=== PATIENT | female | born 1955 | race African-American/Black ===

== ENCOUNTER 2018-04-17 10:43 | Inpatient (IN) | payer BC ==
[2018-04-17 10:58] VITALS: BMI 23.6
--- NOTE | 2018-04-17 11:58 | HP ---
COWS - Scale Resting Pulse: 1= [place] 81-100 Sweatin= Chills/Flushing Restless Observation: 1= Difficult to Sit Still Pupil Size: 1= Pupils >than Normal Bone or Joint Aches: 2= Severe Diffuse Aches Runny Nose/ Eye Tearin= Runny Nose/Eyes GI Upset > 30mins: 3= Vomiting/Diarrhea Tremor Observation: 2= Slight Tremor Visible Yawning Observation: 2= >3x During Session Anxiety or Irritability: 2=Irritable/Anxious Goose Flesh Skin: 0=Smooth Skin COWS Score: 17 CIWA Score Nausea/Vomitin Muscle Tremors: 2 Anxiety: 2 Agitation: 2 Paroxysmal Sweats: 1-Minimal Palms Moist Orientation: 0-Oriented Tacttile Disturbances: 1-Very Mild Itch/Numbness Auditory Disturbances: 1-Very Mild Visual Disturbances: 0-None Headache: 2-Mild CIWA-Ar Total Score: 14 - Admission Criteria OASAS Guidelines: Admission for Medically Managed Detox: Requires at least one of the followin. CIWA greater than 12 2. Seizures within the past 24 hours 3. Delirium tremens within the past 24 hours 4. Hallucinations within the past 24 hours 5. Acute intervention needed for co occurring medical disorder 6. Acute intervention needed for co occurring psychiatric disorder 7. Severe withdrawal that cannot be handled at a lower level of care (continued vomiting, continued diarrhea, abnormal vital signs) requiring intravenous medication and/or fluids 8. Patient presents the following: CIWA greater than 12 Admission Criteria Met: Admission criteria met Admission ROS [facility] - [facility] Chief Complaint: i need help to stop using heroin and alcohol Allergies/Adverse Reactions: Allergies Allergy/AdvReac Type Severity Reaction Status Date / Time No Known Allergies Allergy Verified 04/17/18 11:07 History of Present Illness: this 62 years old female with heroin and alcohol dependence,seeking detox, withdrawal symptom,never been in detox before, hypertension on med hepatitis c followed up with weight loss nicotine dependence longest period of sobriety5 years plan for outpatient program Exam Limitations: No Limitations - Ebola screening Have you traveled outside of the country in the last 21 days: No Have you had contact with anyone from an Ebola affected area: No Have you been sick,other than usual withdrawal symptoms: No Do you have a fever: No - Review of Systems Constitutional: Chills, Loss of Appetite, Malaise, Night Sweats, Changes in sleep, Weakness, Unintentional Wgt. Loss EENT: reports: Hearing Loss, Nose Congestion Respiratory: reports: No Symptoms reported Cardiac: reports: No Symptoms Reported GI: reports: Diarrhea, Nausea, Vomiting, Abdominal cramping : reports: No Symptoms Reported Musculoskeletal: reports: Back Pain, Joint Pain, Muscle Pain, Joint Stiffness Integumentary: reports: Dryness Neuro: reports: Headache, Tremors Endocrine: reports: No Symptoms Reported Hematology: reports: No Symptoms Reported, Other (anemia) Psychiatric: reports: No Sypmtoms Reported, Judgement Intact, Mood/Affect Appropiate Other Systems: Reviewed and Negative Patient History - Patient Medical History Hx Anemia: Yes (history of anemia,no med,use to be on iron) Hx Asthma: No Hx Chronic Obstructive Pulmonary Disease (COPD): Yes (on no med) Hx Cancer: No Hx Cardiac Disorders: No Hx Congestive Heart Failure: No Hx Hypertension: Yes (ON MEDICATION) Hx Hypercholesterolemia: Yes (no med) Hx Pacemaker: No HX Cerebrovascular Accident: No Hx Seizures: No Hx Dementia: No Hx Diabetes: No Hx Gastrointestinal Disorders: No Hx Liver Disease: No Hx Genitourinary Disorders: No Hx Sexually Transmitted Disorders: No Hx Renal Disease (ESRD): No Hx Thyroid Disease: No Hx Human Immunodeficiency Virus (HIV): No (last 2016) Hx Hepatitis C: Yes (no treatment) Hx Depression: No Hx Suicide Attempt: No Hx Bipolar Disorder: No Hx Schizophrenia: No Other Medical History: no suicidal,no homicidal - Patient Surgical History Past Surgical History: No Hx Neurologic Surgery: No Hx Cataract Extraction: No Hx Cardiac Surgery: No Hx Lung Surgery: No Hx Breast Surgery: No Hx Breast Biopsy: No Hx Abdominal Surgery: No Hx Appendectomy: No Hx Cholecystectomy: No Hx Genitourinary Surgery: No Hx Section: Yes (x1 19 years ago) Hx Orthopedic Surgery: Yes (bUNION REMOVAL left) Anesthesia Reaction: No - PPD History Previous Implant?: Yes Documented Results: Negative w/o proof Implanted On Prior R Admission?: No PPD to be Administered?: Yes - Reproductive History Patient is a Female of Child Bearing Age (11 -55 yrs old): No Patient : No - Smoking Cessation Smoking history: Current every day smoker Have you smoked in the past 12 months: Yes Aproximately how many cigarettes per day: 10 Hx Chewing Tobacco Use: No Initiated information on smoking cessation: Yes 'Breaking Loose' booklet given: 04/17/18 - Substance & Tx. History Hx Alcohol Use: Yes Hx Substance Use: Yes Substance Use Type: Alcohol, Heroin Hx Substance Use Treatment: No - Substances Abused Heroin Route: Inhalation Frequency: Daily Amount used: 1 bAG Age of first use: 62 Date of Last Use: 04/17/18 Alcohol Route: Oral Frequency: Daily Amount used: vODKA- pINT Age of first use: 62 Date of Last Use: 04/16/18 Family Disease History - Family Disease History Family History: Denies Admission Physical Exam [facility] - Vital Signs Vital Signs: Vital Signs - 24 hr 04/17/18 10:56 Temperature 97.3 F L Pulse Rate 92 H Respiratory 18 Rate Blood Pressure 151/97 - Physical General Appearance: Yes: Moderate Distress, Tremorous, Irritable, Sweating, Anxious HEENTM: Yes: Normocephalic, SHAUN, Pharynx Normal, Other (poor dental hygiene no natural teeth upper) Respiratory: Yes: Lungs Clear, Normal Breath Sounds, No Respiratory Distress Neck: Yes: Within Normal Limits, Supple, Trachea in good position Breast: Yes: Breast Exam Deferred Cardiology: Yes: Within Normal Limits, Regular Rhythm, Regular Rate, S1, S2 Abdominal: Yes: Within Normal Limits, Normal Bowel Sounds, Non Tender, Flat, Soft, Surgical Scar Genitourinary: Yes: Within Normal Limits Back: Yes: Muscle Spasm Musculoskeletal: Yes: Back pain, Joint Stiffness, Muscle Pain Extremities: Yes: Within Normal Limits, Normal Range of Motion, Tremors Neurological: Yes: felt hanger II-XII NML intact, Alert, Motor Strength 5/5 Integumentary: Yes: Dry Lymphatic: Yes: Within Normal Limits - Diagnostic (1) Opioid dependence with withdrawal Current Visit: Yes Status: Acute (2) Alcohol dependence with uncomplicated withdrawal Current Visit: Yes Status: Acute (3) Weight loss Current Visit: Yes Status: Acute (4) Hepatitis C Current Visit: Yes Status: Acute (5) Poor oral hygiene Current Visit: Yes Status: Acute (6) No natural teeth Current Visit: Yes Status: Acute Cleared for Admission [facility] - Detox or Rehab [facility] Level of Care: Medically Managed Detox Regimen/Protocol: Methadone/Librium S Breath Alcohol Content Breath Alcohol Content: 0 Urine Pregancy Test - Result Urine Test Results: Negative- NO Line Present Urine Drug Screen - Results Drug Screen Negative: No Urine Drug Screen Results: OPI-Opiates Inpatient Rehab Admission - Rehab Decision to Admit Inpatient rehab admission?: No
[2018-04-17] MEDS ORDERED: chlordiazePOXIDE HCL 25 MG CAPSULE PO PRN (12:13)
[2018-04-17] MEDS ORDERED: MENTHOL/PHENOL 1 EACH UD MM PRN (12:14)
[2018-04-17] MEDS ORDERED: ACETAMINOPHEN 325 MG TABLET (FP) PO PRN (12:14)
[2018-04-17] MEDS ORDERED: IBUPROFEN 400 MG TABLET (FP) PO PRN (12:14)
[2018-04-17] MEDS ORDERED: hydrOXYzine PAMOATE 25 MG CAPSULE (FP) PO PRN (12:14)
[2018-04-17] MEDS ORDERED: LOPERAMIDE HCL 2 MG CAPSULE PO PRN (12:14)
[2018-04-17] MEDS ORDERED: MAGNESIUM HYDROX 2400MG/30ML ORAL SUSPENSION 30 ML CUP PO PRN (12:14)
[2018-04-17] MEDS ORDERED: MAG HYDROX/AL HYDROX/SIMETH 30 ML UNIT-DOSE CUP PO PRN (12:14)
[2018-04-17] MEDS ORDERED: MAGNESIUM CITRATE 300 ML BOTTLE PO PRN (12:14)
[2018-04-17] MEDS ORDERED: P-EPHED 60MG/TRIPROLIDI 2.5MG TABLET PO PRN (12:14)
[2018-04-17] MEDS ORDERED: METHADONE HCL 10 MG TABLET (FOR DETOX USE ONLY) PO ONE ×2 (13:35→23:00)
--- NOTE | 2018-04-17 14:58 | EKG ---
Test Reason : Blood Pressure : / mmHG Vent. Rate : 083 BPM Atrial Rate : 083 BPM P-R Int : 160 ms QRS Dur : 080 ms QT Int : 398 ms P-R-T Axes : 074 015 051 degrees QTc Int : 467 ms SINUS RHYTHM WITH MARKED SINUS ARRHYTHMIA POSSIBLE LEFT ATRIAL ENLARGEMENT ABNORMAL ECG NO PREVIOUS ECGS AVAILABLE Confirmed by MATT BENAVIDES MD ([id number]) on 04/17/2018 2:58:26 PM Referred By: Confirmed By:MATT BENAVIDES MD
[2018-04-17] MEDS: NICOTINE 21 MG/24 HOURS TOPICAL PATCH TD SCH (15:09)
[2018-04-17] MEDS: chlordiazePOXIDE HCL 25 MG CAPSULE PO SCH ×2 (17:39→22:09)
[2018-04-17] MEDS ORDERED: MELATONIN 5 MG TABLETS PO PRN (22:00)
[2018-04-17] MEDS: THIAMINE HCL 100 MG TABLET (FP) PO SCH (22:09)
[2018-04-18] MEDS: chlordiazePOXIDE HCL 25 MG CAPSULE PO SCH ×4 (06:22→22:25)
--- NOTE | 2018-04-18 09:03 | PN ---
S CIWA - CIWA Score Nausea/Vomitin Muscle Tremors: 2 Anxiety: 2 Agitation: 2 Paroxysmal Sweats: 1-Minimal Palms Moist Orientation: 0-Oriented Tacttile Disturbances: 1-Very Mild Itch/Numbness Auditory Disturbances: 1-Very Mild Visual Disturbances: 0-None Headache: 2-Mild CIWA-Ar Total Score: 13 BHS COWS - Scale Resting Pulse: 0= [place] 80 or Below Sweatin= Chills/Flushing Restless Observation: 1= Difficult to Sit Still Pupil Size: 1= Pupils >than Normal Bone or Joint Aches: 2= Severe Diffuse Aches Runny Nose/ Eye Tearin= Nasal Congestion GI Upset > 30mins: 2= Nausea/Diarrhea Tremor Observation of Outstretched Hands: 2= Slight Tremor Visible Yawning Observation: 1= 1-2x During Session Anxiety or Irritability: 2=Irritable/Anxious Goose Flesh Skin: 3=Piloerection COWS Score: 16 BHS Progress Note (SOAP) Subjective: alert,irritable,anxious,interrupted sleep,pain in the body,coughing with yellowish mucous Objective: 04/18/18 09:01 Vital Signs Temperature 97.7 F 04/18/18 04:00 Pulse Rate 72 04/18/18 04:00 Respiratory Rate 18 04/18/18 04:00 Blood Pressure 102/64 04/18/18 04:00 O2 Sat by Pulse Oximetry (%) 04/18/18 09:01 labs pending Assessment: 04/18/18 09:01 withdrawal symptom lung no wheezing ,clear, Plan: continue detox,zithromax for acute bronchitis
--- NOTE | 2018-04-18 09:05 | PN ---
S Progress Note Note: antibiotics changed to augmentin 500 mgs po bid for 7 days for acute bronchitis, bill has pro;mitzi qt/qtc [phone]
[2018-04-18] MEDS ORDERED: AMOX TR/POT CLAV 500MG/125MG TABLETS (FP) PO ONE (09:15)
[2018-04-18] MEDS ORDERED: METHADONE HCL 10 MG TABLET (FOR DETOX USE ONLY) PO SCH (10:00)
[2018-04-18] MEDS: amLODIPine BESYLATE 10 MG TABLET (FP) PO SCH (10:05)
[2018-04-18] MEDS: NICOTINE 21 MG/24 HOURS TOPICAL PATCH TD SCH (10:05)
[2018-04-18] MEDS: PRENATAL VITAMINS W/ FOLIC ACID TABLET (FP) PO SCH (10:05)
[2018-04-18] MEDS: LISINOPRIL 10 MG TABLET (FP) PO SCH (10:05)
[2018-04-18 11:04] LABS: URINE APPEARANCE CLEAR; URINE BILIRUBIN NEGATIVE (<2.0 mg/dL); URINE GLUCOSE (UA) NEGATIVE (NEGATIVE); URINE KETONE NEGATIVE (NEGATIVE); URINE LEUK ESTERASE TRACE (NEGATIVE); URINE NITRITE POSITIVE (NEGATIVE); URINE PROTEIN NEGATIVE (NEGATIVE); URINE UROBILINOGEN 4.0 E.U/dl mg/dL (0.2-1.0)
[2018-04-18 11:16] LABS: URINE COLOR YELLOW
[2018-04-18 11:30] LABS: ALBUMIN 3.4 g/dl (3.4-5.0); ALK PHOS 96 U/L (45-117); ANION GAP 7 MMOL/L (8-16); BILIRUBIN,TOTAL 1.3 mg/dL (0.2-1); BLOOD UREA NITROGEN 13 mg/dL (7-18); CALCIUM 8.9 mg/dL (8.5-10.1); CHLORIDE 101 mmol/L (98-107); CO2 30 mmol/L (21-32); CREATININE 0.8 mg/dL (0.55-1.3); GLUCOSE,RANDOM 126 mg/dL (74-106); POTASSIUM 3.2 mmol/L (3.5-5.1); SGOT/AST 116 U/L (15-37); SGPT/ALT 50 U/L (13-61); SODIUM 138 mmol/L (136-145); TOT PROT 8.3 g/dl (6.4-8.2)
[2018-04-18 11:33] LABS: HEMATOCRIT 36.7 % (32.4-45.2); HEMOGLOBIN 12.2 GM/dL (10.7-15.3); MCH 26.1 pg (25.7-33.7); MCHC 33.3 g/dl (32.0-36.0); MEAN CELL VOLUME 78.2 fl (80-96); PLATELET COUNT 146 K/MM3 (134-434); RBC 4.69 M/mm3 (3.60-5.2); RDW 15.3 % (11.6-15.6); WHITE BLOOD COUNT 8.1 K/mm3 (4.0-10.0)
[2018-04-18] MEDS ORDERED: PNEUMOC 13-VAL CONJ-DIP CRM/PF 0.5 ML DISP.SYRIN IM ONE (12:00)
[2018-04-18] MEDS ORDERED: PNEUMOCOCCAL 23 VACCINE 0.5 ML VIAL IM ONE (12:00)
[2018-04-18] MEDS ORDERED: FLU VACCINE QUAD 60 MCG/0.5 ML (MDV 18-19) IM ONE (12:00)
[2018-04-18 12:21] LABS: EPI CELLS RARE /HPF (FEW); URINE BACTERIA RARE /hpf (NONE SEEN); URINE MUCUS RARE
[2018-04-18 13:10] LABS: SICKLE CELL SCREEN NEGATIVE (NEGATIVE)
--- NOTE | 2018-04-18 13:51 | PN ---
[facility] Progress Note Note: Laboratory Last Values WBC 8.1 K/mm3 (4.0-10.0) 04/18/18 06:00 RBC 4.69 M/mm3 (3.60-5.2) 04/18/18 06:00 Hgb 12.2 GM/dL (10.7-15.3) 04/18/18 06:00 Hct 36.7 % (32.4-45.2) 04/18/18 06:00 MCV 78.2 fl (80-96) L 04/18/18 06:00 MCH 26.1 pg (25.7-33.7) 04/18/18 06:00 MCHC 33.3 g/dl (32.0-36.0) 04/18/18 06:00 RDW 15.3 % (11.6-15.6) 04/18/18 06:00 Plt Count 146 K/MM3 (134-434) 04/18/18 06:00 MPV 10.0 fl (7.5-11.1) 04/18/18 06:00 Sickle Cell Screen Negative (NEGATIVE) 04/18/18 06:00 Sodium 138 mmol/L (136-145) 04/18/18 06:00 Potassium 3.2 mmol/L (3.5-5.1) L 04/18/18 06:00 Chloride 101 mmol/L (98-107) 04/18/18 06:00 Carbon Dioxide 30 mmol/L (21-32) 04/18/18 06:00 Anion Gap 7 MMOL/L (8-16) L 04/18/18 06:00 BUN 13 mg/dL (7-18) 04/18/18 06:00 Creatinine 0.8 mg/dL (0.55-1.3) 04/18/18 06:00 Creat Clearance w eGFR > 60 (>60) 04/18/18 06:00 Random Glucose 126 mg/dL (74-106) H 04/18/18 06:00 Calcium 8.9 mg/dL (8.5-10.1) 04/18/18 06:00 Total Bilirubin 1.3 mg/dL (0.2-1) H 04/18/18 06:00 AST 116 U/L (15-37) H 04/18/18 06:00 ALT 50 U/L (13-61) 04/18/18 06:00 Alkaline Phosphatase 96 U/L (45-117) 04/18/18 06:00 Total Protein 8.3 g/dl (6.4-8.2) H 04/18/18 06:00 Albumin 3.4 g/dl (3.4-5.0) 04/18/18 06:00 Urine Color Yellow 04/18/18 09:00 Urine Appearance Clear 04/18/18 09:00 Urine pH 7.0 (5.0-8.0) 04/18/18 09:00 Ur Specific [place] 1.014 (1.010-1.035) 04/18/18 09:00 Urine Protein Negative (NEGATIVE) 04/18/18 09:00 Urine Glucose (UA) Negative (NEGATIVE) 04/18/18 09:00 Urine Ketones Negative (NEGATIVE) 04/18/18 09:00 Urine Blood 1+ (NEGATIVE) H 04/18/18 09:00 Urine Nitrite Positive (NEGATIVE) 04/18/18 09:00 Urine Bilirubin Negative (<2.0 mg/dL) 04/18/18 09:00 Urine Urobilinogen 4.0 e.u/dl mg/dL (0.2-1.0) H 04/18/18 09:00 Ur Leukocyte Esterase Trace (NEGATIVE) 04/18/18 09:00 Urine WBC (Auto) 8 /hpf (3-5) 04/18/18 09:00 Urine RBC (Auto) None /hpf (0-3) 04/18/18 09:00 Ur Epithelial Cells Rare /HPF (FEW) 04/18/18 09:00 Urine Bacteria Rare /hpf (NONE SEEN) 04/18/18 09:00 Urine Mucus Rare 04/18/18 09:00 RPR Titer Nonreactive (NONREACTIVE) 04/18/18 06:00 hypokalemia k is 3.2 k dur 20 meq po now then bid d/c tylenol for elevation of ast albuterol inhaler for bronchitis fluid repeat cmp,inr in am
[2018-04-18] MEDS ORDERED: ALBUTEROL SO4 8 GM HFA INHALER IH PRN (13:53)
[2018-04-18] MEDS: POTASSIUM CHLORIDE TABS 20 MEQ TABLET.ER (FP) PO SCH ×2 (14:01→22:25)
[2018-04-18] MEDS: AMOX TR/POT CLAV 500MG/125MG TABLETS (FP) PO SCH (17:55)
[2018-04-18] MEDS: THIAMINE HCL 100 MG TABLET (FP) PO SCH (22:25)
[2018-04-19] MEDS: chlordiazePOXIDE HCL 25 MG CAPSULE PO SCH ×2 (06:44→11:35)
[2018-04-19] MEDS: AMOX TR/POT CLAV 500MG/125MG TABLETS (FP) PO SCH ×2 (07:06→17:34)
--- NOTE | 2018-04-19 10:42 | PN ---
[facility] CIWA - CIWA Score Nausea/Vomitin-No Nausea/No Vomiting Muscle Tremors: 1-None Visible, but [place] Anxiety: 2 Agitation: 0-Normal Activity Paroxysmal Sweats: 4-Forehead w/Sweat Beads Orientation: 0-Oriented Tacttile Disturbances: 0-None Auditory Disturbances: 0-None Visual Disturbances: 0-None Headache: 3-Moderate CIWA-Ar Total Score: 10 S COWS - Scale Resting Pulse: 1= [place] 81-100 Sweatin= Beads of Sweat on Face Restless Observation: 0= Sits Still Pupil Size: 1= Pupils >than Normal Bone or Joint Aches: 2= Severe Diffuse Aches Runny Nose/ Eye Tearin= None GI Upset > 30mins: 0= None Tremor Observation of Outstretched Hands: 1= Tremor [place], Not Seen Yawning Observation: 0= None Anxiety or Irritability: 2=Irritable/Anxious Goose Flesh Skin: 0=Smooth Skin COWS Score: 10 S Progress Note (SOAP) Subjective: PATIENT C/O PRODUCTIVE COUGH WITH LIGHT YELLOW PHLEGM, SWEATING, CHILLS, BODY ACHES AND ANXIETY. Objective: 04/19/18 10:38 Vital Signs Temperature 101.5 F H 04/19/18 09:26 Pulse Rate 102 H 04/19/18 09:26 Respiratory Rate 04/19/18 09:26 Blood Pressure 133/79 04/19/18 09:26 O2 Sat by Pulse Oximetry (%) Laboratory Tests 04/18/18 04/18/18 04/18/18 06:00 06:00 06:00 WBC 8.1 RBC 4.69 Hgb 12.2 Hct 36.7 MCV 78.2 L MCH 26.1 MCHC 33.3 RDW 15.3 Plt Count 146 MPV 10.0 Sickle Cell Screen Negative Sodium 138 Potassium 3.2 L Chloride 101 Carbon Dioxide 30 Anion Gap 7 L BUN 13 Creatinine 0.8 Creat Clearance w eGFR > 60 Random Glucose 126 H Calcium 8.9 Total Bilirubin 1.3 H AST 116 H ALT 50 Alkaline Phosphatase 96 Total Protein 8.3 H Albumin 3.4 Urine Color Urine Appearance Urine pH Ur Specific [place] Urine Protein Urine Glucose (UA) Urine Ketones Urine Blood Urine Nitrite Urine Bilirubin Urine Urobilinogen Ur Leukocyte Esterase Urine WBC (Auto) Urine RBC (Auto) Ur Epithelial Cells Urine Bacteria Urine Mucus RPR Titer Nonreactive 02/16/19 09:00 WBC RBC Hgb Hct MCV MCH MCHC RDW Plt Count MPV Sickle Cell Screen Sodium Potassium Chloride Carbon Dioxide Anion Gap BUN Creatinine Creat Clearance w eGFR Random Glucose Calcium Total Bilirubin AST ALT Alkaline Phosphatase Total Protein Albumin Urine Color Yellow Urine Appearance Clear Urine pH 7.0 Ur Specific [place] 1.014 Urine Protein Negative Urine Glucose (UA) Negative Urine Ketones Negative Urine Blood 1+ H Urine Nitrite Positive Urine Bilirubin Negative Urine Urobilinogen 4.0 e.u/dl H Ur Leukocyte Esterase Trace Urine WBC (Auto) 8 Urine RBC (Auto) None Ur Epithelial Cells Rare Urine Bacteria Rare Urine Mucus Rare RPR Titer PE: SKIN WARM, SWEATY ALERT AND ORIENTED X 3 CAR S1S2, RRR, HR 102 RESP: + RHONCHI B/L UPPER LOBES, CLEARS WITH COUGH, +SCATTERED WHEEZES GI SOFT, BS+, NT EXT FULL ROM AMB AD LILIANE +ANXIETY Assessment: 04/19/18 10:40 HYPOKALEMIA: TREATED WITHDRAWAL SYNDROME URI ASTHMA EXACERBATION Plan: REPEAT POTASSIUM LEVEL CONTINUE AUGMENTIN IBU/APAP FOR FEVER/BODY ACHES ENCOURAGE ORAL FLUIDS ALBUTEROL PRN ADD PREDNISONE 20MG BID X 3 DAYS
[2018-04-19 10:54] LABS: INR 1.12 (0.83-1.09); PROTHROMBIN TIME (PATIENT) 13.2 SEC (9.7-13.0)
[2018-04-19 10:55] LABS: ALBUMIN 2.9 g/dl (3.4-5.0); ALK PHOS 79 U/L (45-117); ANION GAP 7 MMOL/L (8-16); BILIRUBIN,TOTAL 1.3 mg/dL (0.2-1); BLOOD UREA NITROGEN 22 mg/dL (7-18); CALCIUM 8.3 mg/dL (8.5-10.1); CHLORIDE 101 mmol/L (98-107); CO2 30 mmol/L (21-32); CREATININE 0.9 mg/dL (0.55-1.3); GLUCOSE,RANDOM 131 mg/dL (74-106); POTASSIUM 3.5 mmol/L (3.5-5.1); SGOT/AST 81 U/L (15-37); SGPT/ALT 38 U/L (13-61); SODIUM 138 mmol/L (136-145); TOT PROT 6.6 g/dl (6.4-8.2)
[2018-04-19] MEDS: LISINOPRIL 10 MG TABLET (FP) PO SCH (11:07)
[2018-04-19] MEDS: amLODIPine BESYLATE 10 MG TABLET (FP) PO SCH (11:07)
[2018-04-19] MEDS: PRENATAL VITAMINS W/ FOLIC ACID TABLET (FP) PO SCH (11:07)
[2018-04-19] MEDS: POTASSIUM CHLORIDE TABS 20 MEQ TABLET.ER (FP) PO SCH ×2 (11:08→22:15)
[2018-04-19] MEDS: METHADONE HCL 5 MG TABLET (FOR DETOX USE ONLY) PO SCH (11:35)
[2018-04-19] MEDS: predniSONE 20 MG TABLET (UD) PO SCH ×2 (11:35→22:15)
[2018-04-19] MEDS: NICOTINE 21 MG/24 HOURS TOPICAL PATCH TD SCH (12:43)
[2018-04-19] MEDS: chlordiazePOXIDE 5 MG CAPSULE PO SCH ×2 (17:37→22:14)
[2018-04-19] MEDS: THIAMINE HCL 100 MG TABLET (FP) PO SCH (22:15)
[2018-04-20] MEDS: chlordiazePOXIDE 5 MG CAPSULE PO SCH ×2 (06:27→10:42)
[2018-04-20] MEDS: AMOX TR/POT CLAV 500MG/125MG TABLETS (FP) PO SCH ×2 (07:57→17:24)
[2018-04-20] MEDS: POTASSIUM CHLORIDE TABS 20 MEQ TABLET.ER (FP) PO SCH (10:41)
[2018-04-20] MEDS: predniSONE 20 MG TABLET (UD) PO SCH ×2 (10:41→22:26)
[2018-04-20] MEDS: PRENATAL VITAMINS W/ FOLIC ACID TABLET (FP) PO SCH (10:41)
[2018-04-20] MEDS: amLODIPine BESYLATE 10 MG TABLET (FP) PO SCH (10:41)
[2018-04-20] MEDS: METHADONE HCL 5 MG TABLET (FOR DETOX USE ONLY) PO SCH (10:41)
[2018-04-20] MEDS: LISINOPRIL 10 MG TABLET (FP) PO SCH (10:41)
[2018-04-20] MEDS: NICOTINE 21 MG/24 HOURS TOPICAL PATCH TD SCH (10:42)
--- NOTE | 2018-04-20 12:53 | PN ---
BHS Progress Note (SOAP) Subjective: Interrupted Sleep Tremors Sweating H/A Body Aches Cough (Patient Started on Augmentin Yesterday) Vomiting Objective: PATIENT A & O X 3, OBSERVED AMBULATING ON UNIT WITH ASSISTANCE OF A CANE. IN NO ACUTE DISTRESS. PATIENT REPORTS INTERMITTENT SENSATIONS OF BURNING WHEN URINATING; HOWEVER, SHE REPORTS THIS TO BE A CHRONIC OCCURRENCE. 04/20/18 12:49 Vital Signs Temperature 97.7 F 04/20/18 09:27 Pulse Rate 82 04/20/18 09:27 Respiratory Rate 16 04/20/18 09:27 Blood Pressure 125/70 04/20/18 09:27 O2 Sat by Pulse Oximetry (%) Laboratory Tests 04/18/18 04/18/18 04/18/18 06:00 06:00 06:00 WBC 8.1 RBC 4.69 Hgb 12.2 Hct 36.7 MCV 78.2 L MCH 26.1 MCHC 33.3 RDW 15.3 Plt Count 146 MPV 10.0 Sickle Cell Screen Negative PT with INR INR Sodium 138 Potassium 3.2 L Chloride 101 Carbon Dioxide 30 Anion Gap 7 L BUN 13 Creatinine 0.8 Creat Clearance w eGFR > 60 Random Glucose 126 H Calcium 8.9 Total Bilirubin 1.3 H AST 116 H ALT 50 Alkaline Phosphatase 96 Total Protein 8.3 H Albumin 3.4 Urine Color Urine Appearance Urine pH Ur Specific [place] Urine Protein Urine Glucose (UA) Urine Ketones Urine Blood Urine Nitrite Urine Bilirubin Urine Urobilinogen Ur Leukocyte Esterase Urine WBC (Auto) Urine RBC (Auto) Ur Epithelial Cells Urine Bacteria Urine Mucus RPR Titer Nonreactive 04/18/18 04/19/18 04/19/18 09:00 07:50 07:50 WBC RBC Hgb Hct MCV MCH MCHC RDW Plt Count MPV Sickle Cell Screen PT with INR 13.20 H INR 1.12 H Sodium 138 Potassium 3.5 Chloride 101 Carbon Dioxide 30 Anion Gap 7 L BUN 22 H Creatinine 0.9 Creat Clearance w eGFR > 60 Random Glucose 131 H Calcium 8.3 L Total Bilirubin 1.3 H AST 81 H ALT 38 Alkaline Phosphatase 79 Total Protein 6.6 Albumin 2.9 L Urine Color Yellow Urine Appearance Clear Urine pH 7.0 Ur Specific [place] 1.014 Urine Protein Negative Urine Glucose (UA) Negative Urine Ketones Negative Urine Blood 1+ H Urine Nitrite Positive Urine Bilirubin Negative Urine Urobilinogen 4.0 e.u/dl H Ur Leukocyte Esterase Trace Urine WBC (Auto) 8 Urine RBC (Auto) None Ur Epithelial Cells Rare Urine Bacteria Rare Urine Mucus Rare RPR Titer 04/20/18 07:50 WBC RBC Hgb Hct MCV MCH MCHC RDW Plt Count MPV Sickle Cell Screen PT with INR INR Sodium Potassium 4.5 Chloride Carbon Dioxide Anion Gap BUN Creatinine Creat Clearance w eGFR Random Glucose Calcium Total Bilirubin AST ALT Alkaline Phosphatase Total Protein Albumin Urine Color Urine Appearance Urine pH Ur Specific [place] Urine Protein Urine Glucose (UA) Urine Ketones Urine Blood Urine Nitrite Urine Bilirubin Urine Urobilinogen Ur Leukocyte Esterase Urine WBC (Auto) Urine RBC (Auto) Ur Epithelial Cells Urine Bacteria Urine Mucus RPR Titer LABS NOTED. 04/20/18 16:23 Assessment: 04/20/18 12:50 WITHDRAWAL SYMPTOMS. Plan: CONTINUE DETOX. K LEVEL NOW IN NORMAL RANGE, D/C K-DUR. INCREASE DAILY PO FLUID INTAKE. CONTINUE AUGMENTIN. PRN ROBITUSSIN PO FOR COUGH. REPEAT UA FOR ADMISSION UA ABNORMALITIES.
[2018-04-20] MEDS: chlordiazePOXIDE HCL 10 MG CAPSULE PO SCH ×2 (17:24→22:26)
[2018-04-20] MEDS: guaiFENesin/D-METHORPHAN HB 10 ML UNIT-DOSE CUPS PO PRN (17:28)
[2018-04-20 18:27] LABS: URINE APPEARANCE TURBID; URINE BILIRUBIN NEGATIVE (<2.0 mg/dL); URINE COLOR AMBER; URINE GLUCOSE (UA) NEGATIVE (NEGATIVE); URINE KETONE NEGATIVE (NEGATIVE); URINE LEUK ESTERASE 3+ (NEGATIVE); URINE NITRITE NEGATIVE (NEGATIVE); URINE PROTEIN 1+ (NEGATIVE); URINE UROBILINOGEN 4.0 E.U/dl mg/dL (0.2-1.0)
[2018-04-20 18:38] LABS: EPI CELLS FEW /HPF (FEW); URINE MUCUS RARE
[2018-04-20] MEDS: THIAMINE HCL 100 MG TABLET (FP) PO SCH (22:26)
[2018-04-21] MEDS: chlordiazePOXIDE HCL 10 MG CAPSULE PO SCH ×2 (05:16→10:12)
[2018-04-21] MEDS: guaiFENesin/D-METHORPHAN HB 10 ML UNIT-DOSE CUPS PO PRN ×2 (05:18→22:19)
[2018-04-21] MEDS: AMOX TR/POT CLAV 500MG/125MG TABLETS (FP) PO SCH ×2 (07:00→18:30)
[2018-04-21] MEDS ORDERED: METHADONE HCL 10 MG TABLET (FOR DETOX USE ONLY) PO SCH (10:00)
[2018-04-21] MEDS: predniSONE 20 MG TABLET (UD) PO SCH ×2 (10:11→22:17)
[2018-04-21] MEDS: amLODIPine BESYLATE 10 MG TABLET (FP) PO SCH (10:11)
[2018-04-21] MEDS: LISINOPRIL 10 MG TABLET (FP) PO SCH (10:11)
[2018-04-21] MEDS: PRENATAL VITAMINS W/ FOLIC ACID TABLET (FP) PO SCH (10:11)
[2018-04-21] MEDS: NICOTINE 21 MG/24 HOURS TOPICAL PATCH TD SCH (10:12)
--- NOTE | 2018-04-21 12:38 | PN ---
BHS Progress Note (SOAP) Subjective: Constipation, Sweating, Chills. Objective: PATIENT A & O X 2 (UNCERTAIN ABOUT CURRENT DAY / DATE). PATIENT OBSERVED AMBULATING ON UNIT. IN NO ACUTE DISTRESS. 04/21/18 12:36 Vital Signs Temperature 98.2 F 04/21/18 09:34 Pulse Rate 73 04/21/18 09:34 Respiratory Rate 16 04/21/18 09:34 Blood Pressure 124/78 04/21/18 09:34 O2 Sat by Pulse Oximetry (%) Laboratory Tests 04/18/18 04/18/18 04/18/18 06:00 06:00 06:00 WBC 8.1 RBC 4.69 Hgb 12.2 Hct 36.7 MCV 78.2 L MCH 26.1 MCHC 33.3 RDW 15.3 Plt Count 146 MPV 10.0 Sickle Cell Screen Negative PT with INR INR Sodium 138 Potassium 3.2 L Chloride 101 Carbon Dioxide 30 Anion Gap 7 L BUN 13 Creatinine 0.8 Creat Clearance w eGFR > 60 Random Glucose 126 H Calcium 8.9 Total Bilirubin 1.3 H AST 116 H ALT 50 Alkaline Phosphatase 96 Total Protein 8.3 H Albumin 3.4 Urine Color Urine Appearance Urine pH Ur Specific [place] Urine Protein Urine Glucose (UA) Urine Ketones Urine Blood Urine Nitrite Urine Bilirubin Urine Urobilinogen Ur Leukocyte Esterase Urine WBC (Auto) Urine RBC (Auto) Ur Epithelial Cells Urine Bacteria Urine Mucus RPR Titer Nonreactive 04/18/18 04/19/18 04/19/18 09:00 07:50 07:50 WBC RBC Hgb Hct MCV MCH MCHC RDW Plt Count MPV Sickle Cell Screen PT with INR 13.20 H INR 1.12 H Sodium 138 Potassium 3.5 Chloride 101 Carbon Dioxide 30 Anion Gap 7 L BUN 22 H Creatinine 0.9 Creat Clearance w eGFR > 60 Random Glucose 131 H Calcium 8.3 L Total Bilirubin 1.3 H AST 81 H ALT 38 Alkaline Phosphatase 79 Total Protein 6.6 Albumin 2.9 L Urine Color Yellow Urine Appearance Clear Urine pH 7.0 Ur Specific [place] 1.014 Urine Protein Negative Urine Glucose (UA) Negative Urine Ketones Negative Urine Blood 1+ H Urine Nitrite Positive Urine Bilirubin Negative Urine Urobilinogen 4.0 e.u/dl H Ur Leukocyte Esterase Trace Urine WBC (Auto) 8 Urine RBC (Auto) None Ur Epithelial Cells Rare Urine Bacteria Rare Urine Mucus Rare RPR Titer 02/18/19 02/18/19 07:50 15:50 WBC RBC Hgb Hct MCV MCH MCHC RDW Plt Count MPV Sickle Cell Screen PT with INR INR Sodium Potassium 4.5 Chloride Carbon Dioxide Anion Gap BUN Creatinine Creat Clearance w eGFR Random Glucose Calcium Total Bilirubin AST ALT Alkaline Phosphatase Total Protein Albumin Urine Color [place] Urine Appearance Turbid Urine pH 5.0 D Ur Specific [place] 1.026 Urine Protein 1+ H Urine Glucose (UA) Negative Urine Ketones Negative Urine Blood Negative Urine Nitrite Negative Urine Bilirubin Negative Urine Urobilinogen 4.0 e.u/dl H Ur Leukocyte Esterase 3+ H Urine WBC (Auto) 133 Urine RBC (Auto) 67 Ur Epithelial Cells Few Urine Bacteria Urine Mucus Rare RPR Titer LABS NOTED. RESULTS OF REPEAT UA NOTED. PATIENT REPORTS THAT OCCASIONAL "BURNING" SENSATION THAT SHE EXPERIENCES WHEN URINATING HAS NOT HAPPENED FOR LAST SEVERAL DAYS. PATIENT DENIES ANY OTHER UNUSUAL URINARY COMPLAINTS (FREQUENCY, URGENCY, HESITANCY). 04/21/18 12:40 Assessment: 04/21/18 12:36 WITHDRAWAL SYMPTOMS. Plan: CONTINUE DETOX. INCREASE DAILY PO FLUID INTAKE. CONTINUE AUGMENTIN, FOR BOTH ACUTE BRONCHITIS AND FOR POSSIBLE UTI. PRESCRIPTION FOR AUGMENTIN SENT TO PATIENT'S PHARMACY ( [facility] [place] FOR AFTERCARE. PATIENT ADVISED TO COMPLETE FULL COURSE OF ANTIBIOTIC. PATIENT ADVISED TO FOLLOW-UP WITH [facility] DR. JENNIFER VARGAS SOON POSSIBLE AFTER DISCHARGE FROM DETOX UNIT FOR GENERAL MEDICAL ASSESSMENT AND FOR ACUTE BRONCHITIS AND FOR POSSIBLE UTI NOTED WHILE ADMITTED FOR DETOX. PATIENT VERBALIZED UNDERSTANDING OF ALL RECOMMENDATIONS. COPIES OF ALL LABS DRAWN WHILE ADMITTED TO DETOX TO BE GIVEN TO PATIENT TAKE WITH HER AT TIME OF DISCHARGE FROM DETOX UNIT.
[2018-04-21] MEDS: THIAMINE HCL 100 MG TABLET (FP) PO SCH (22:17)
[2018-04-22] MEDS: guaiFENesin/D-METHORPHAN HB 10 ML UNIT-DOSE CUPS PO PRN (05:21)
[2018-04-22] MEDS ORDERED: METHADONE HCL 5 MG TABLET (FOR DETOX USE ONLY) PO SCH (06:00)
[2018-04-22] MEDS: AMOX TR/POT CLAV 500MG/125MG TABLETS (FP) PO SCH (08:30)
[2018-04-22 09:06] VITALS: BP 118/72; PULSE 73; TEMP 98.2
[2018-04-22] MEDS: amLODIPine BESYLATE 10 MG TABLET (FP) PO SCH (10:30)
[2018-04-22] MEDS: LISINOPRIL 10 MG TABLET (FP) PO SCH (10:30)
[2018-04-22] MEDS: PRENATAL VITAMINS W/ FOLIC ACID TABLET (FP) PO SCH (10:31)
[2018-04-22] MEDS: predniSONE 20 MG TABLET (UD) PO SCH (10:31)
[2018-04-22] MEDS: NICOTINE 21 MG/24 HOURS TOPICAL PATCH TD SCH (10:32)
--- NOTE | 2018-04-22 11:18 | DS ---
[facility] Detox Discharge Summary Admission Date: 04/17/18 Discharge Date: 04/22/18 - History Present History: Alcohol Dependence, Opioid Dependence Pertinent Past History: Pt successfully completed detox for alcohol and heroin use- d/w pt the importance of getting on MAT- suboxone/methadone- pt refused stating that he will try abstinence. Also d/w pt importance of attending groups.. Pt states will f/u PCP and consider rehab at a later time. Pt states he does not need any d/c meds - Physical Exam Results Vital Signs: Vital Signs Temperature 98.2 F 04/22/18 09:03 Pulse Rate 73 04/22/18 09:03 Respiratory Rate 18 04/22/18 09:03 Blood Pressure 118/72 04/22/18 09:03 O2 Sat by Pulse Oximetry (%) - Treatment Hospital Course: Detox Protocol Followed, Detoxed Safely, Responded well, Discharged Condition Good - Medication Discharge Medications: Ambulatory Orders Amlodipine Besylate 10 mg PO DAILY 04/17/18 Hydralazine HCl 25 mg PO DAILY 04/17/18 Lisinopril 10 mg PO DAILY 04/17/18 Amoxicillin/Potassium Clav [Augmentin 875-125 Tablet] 1 each PO BID 7 Days #14 tablet 04/21/18
== END 2018-04-22 13:00 | disposition home or self-care (01) | DRG 773 ==
LOC: YASAS 10:43 → Y6N 13:11
PROVIDERS: ADMIT Surgery; ATTEND Surgery
PROC: HZ2ZZZZ Detoxification Services for Substance Abuse Treatment (ICD-10-PCS; principal; 2018-04-17)
DX: F11.23 Opioid dependence with withdrawal (principal); F10.230 Alcohol dependence with withdrawal, uncomplicated; F17.210 Nicotine dependence, cigarettes, uncomplicated; I10 Essential (primary) hypertension; E87.6 Hypokalemia; J06.9 Acute upper respiratory infection, unspecified; J45.901 Unspecified asthma with (acute) exacerbation; B18.2 Chronic viral hepatitis C; K08.9 Disorder of teeth and supporting structures, unspecified; K08.109 Complete loss of teeth, unspecified cause, unspecified class
CPT/HCPCS: 36415; 80053; 81003; 81015; 84132; 85027; 85610; 85660; 86593; 90688; 90732; 93005; 93010; G0008; G0009

== ENCOUNTER 2018-05-28 13:06 | Inpatient (IN) | payer BC ==
[2018-05-28 18:01] VITALS: BMI 24.0
--- NOTE | 2018-05-28 18:31 | HP ---
"COWS - Scale Resting Pulse: 1= IN 81-100 Sweatin= Chills/Flushing Restless Observation: 3= Extraneous Movement Pupil Size: 0= Normal to Room Light Bone or Joint Aches: 2= Severe Diffuse Aches Runny Nose/ Eye Tearin= Nasal Congestion GI Upset > 30mins: 2= Nausea/Diarrhea Tremor Observation: 0= None Yawning Observation: 0= None Anxiety or Irritability: 2=Irritable/Anxious Goose Flesh Skin: 0=Smooth Skin COWS Score: 12 CIWA Score Nausea/Vomitin Muscle Tremors: 1-None Visible, but [place] Anxiety: 4-Mod. Anxious/Guarded Agitation: 4-Moderately Restless Paroxysmal Sweats: 2 Orientation: 0-Oriented Tacttile Disturbances: 0-None Auditory Disturbances: 0-None Visual Disturbances: 0-None Headache: 2-Mild CIWA-Ar Total Score: 16 - Admission Criteria OASAS Guidelines: Admission for Medically Managed Detox: Requires at least one of the followin. CIWA greater than 12 2. Seizures within the past 24 hours 3. Delirium tremens within the past 24 hours 4. Hallucinations within the past 24 hours 5. Acute intervention needed for co occurring medical disorder 6. Acute intervention needed for co occurring psychiatric disorder 7. Severe withdrawal that cannot be handled at a lower level of care (continued vomiting, continued diarrhea, abnormal vital signs) requiring intravenous medication and/or fluids 8. Admission ROS [facility] Allergies/Adverse Reactions: Allergies Allergy/AdvReac Type Severity Reaction Status Date / Time No Known Allergies Allergy Verified 05/28/18 20:21 History of Present Illness: pt here requesting detox from heroin use , reports 1 bag/day since d/c from this facility , relapsed almost 2 weeks ago , could not find rehab to go to . Denies ivdu , current symptoms as above. etoh use 1 pint liquor /day , reports tremors if not drinking , starts drinking around 9 am , denies seizures, blackouts , + tremors , latest use today . Boy 0.020 PMHX : hep C( rf= st) , htn pshx : c-sx x 1 psych : denies meds - see list shx : lives w/ daughter Search Terms: mariola shelley, 1955 Search Date: 05/28/2018 06:43:15 PM The Drug Utilization Report below displays all of the controlled substance prescriptions, if any, that your patient has filled in the last twelve months. The information displayed on this report is compiled from pharmacy submissions to the Department, and accurately reflects the information as submitted by the pharmacies. This report was requested by: Ayla Reynolds | Reference #: [id number] There are no results for the search terms that you entered. Exam Limitations: No Limitations - Ebola screening Have you traveled outside of the country in the last 21 days: No Have you had contact with anyone from an Ebola affected area: No Have you been sick,other than usual withdrawal symptoms: No Do you have a fever: No - Review of Systems Constitutional: See HPI EENT: reports: See HPI, Other (glasses - bifocals, missing teeth) Respiratory: reports: No Symptoms reported Cardiac: reports: No Symptoms Reported GI: reports: See HPI : reports: No Symptoms Reported Musculoskeletal: reports: Back Pain Integumentary: reports: No Symptoms Reported Neuro: reports: No Symptoms reported Endocrine: reports: No Symptoms Reported Psychiatric: reports: Orientated x3, Agitated, Anxious Patient History - Patient Medical History Hx Anemia: Yes (history of anemia,no med,use to be on iron) Hx Asthma: No Hx Chronic Obstructive Pulmonary Disease (COPD): Yes (on no med) Hx Cancer: No Hx Cardiac Disorders: No Hx Congestive Heart Failure: No Hx Hypertension: Yes (ON MEDICATION) Hx Hypercholesterolemia: Yes (no med) Hx Pacemaker: No HX Cerebrovascular Accident: No Hx Seizures: No Hx Dementia: No Hx Diabetes: No Hx Gastrointestinal Disorders: No Hx Liver Disease: No Hx Genitourinary Disorders: No Hx Sexually Transmitted Disorders: No Hx Renal Disease (ESRD): No Hx Thyroid Disease: No Hx Human Immunodeficiency Virus (HIV): No (last 2016) Hx Hepatitis C: Yes (no treatment) Hx Depression: No Hx Suicide Attempt: No Hx Bipolar Disorder: No Hx Schizophrenia: No - Patient Surgical History Past Surgical History: No Hx Neurologic Surgery: No Hx Cataract Extraction: No Hx Cardiac Surgery: No Hx Lung Surgery: No Hx Breast Surgery: No Hx Breast Biopsy: No Hx Abdominal Surgery: No Hx Appendectomy: No Hx Cholecystectomy: No Hx Genitourinary Surgery: No Hx Section: Yes (x1 19 years ago) Hx Orthopedic Surgery: Yes (bUNION REMOVAL left) Anesthesia Reaction: No - PPD History Date: 04/19/18 - Smoking Cessation Smoking history: Current every day smoker Have you smoked in the past 12 months: Yes Aproximately how many cigarettes per day: 10 Hx Chewing Tobacco Use: No Initiated information on smoking cessation: No - Substances Abused Heroin Route: SNIFF Frequency: Daily Amount used: 1 BAG Age of first use: 62 Date of Last Use: 05/28/18 Alcohol Route: Oral Frequency: Daily Amount used: 1 PINT VODKA Age of first use: 51 Date of Last Use: 05/28/18 Family Disease History - Family Disease History Family History: Denies Family Disease History: Other: Father (d. unknown cause ), Mother (d. 78 [place] ), Daughter (A & W ,age 19 ) Admission Physical Exam [facility] - Vital Signs Vital Signs: Vital Signs - 24 hr 05/28/18 17:58 Temperature 97.3 F L Pulse Rate 95 H Respiratory 18 Rate Blood Pressure 117/86 - Physical General Appearance: Yes: Mild Distress HEENTM: Yes: EOMI, Hearing grossly Normal, Normocephalic, Normal Voice Respiratory: Yes: Chest Non-Tender, Lungs Clear, Normal Breath Sounds Neck: Yes: No masses,lesions,Nodules, Trachea in good position Cardiology: Yes: Regular Rhythm, Regular Rate, S1, S2, Tachycardia Abdominal: Yes: Normal Bowel Sounds, Soft Genitourinary: Yes: Within Normal Limits Back: Yes: Normal Inspection Musculoskeletal: Yes: full range of Motion, Gait Steady Extremities: Yes: Normal Capillary Refill, Non-Tender Neurological: Yes: Motor Strength 5/5 Integumentary: Yes: Normal Color, Dry, Warm - Diagnostic (1) Alcohol dependence with uncomplicated withdrawal Current Visit: Yes Status: Acute (2) Opioid dependence with withdrawal Current Visit: Yes Status: Acute S Breath Alcohol Content Breath Alcohol Content: 0.020 Urine Pregancy Test - Result Urine Test Results: Negative - NO line present Urine Drug Screen - Results Drug Screen Negative: No Urine Drug Screen Results: OPI-Opiates, BZO-Benzodiazepines Inpatient Rehab Admission - Rehab Decision to Admit Inpatient rehab admission?: No"
[2018-05-28] MEDS ORDERED: IBUPROFEN 400 MG TABLET (FP) PO PRN (18:51)
[2018-05-28] MEDS ORDERED: cloNIDine HCL 0.1 MG TABLET PO PRN (18:51)
[2018-05-28] MEDS ORDERED: MENTHOL/PHENOL 1 EACH UD MM PRN (18:51)
[2018-05-28] MEDS ORDERED: NICOTINE POLACRILEX 2 MG GUM BUC PRN (18:51)
[2018-05-28] MEDS ORDERED: MAGNESIUM HYDROX 2400MG/30ML ORAL SUSPENSION 30 ML CUP PO PRN (18:51)
[2018-05-28] MEDS ORDERED: hydrOXYzine PAMOATE 25 MG CAPSULE (FP) PO PRN (18:51)
[2018-05-28] MEDS ORDERED: BISMUTH SUBSALICYLATE 524 MG/30 ML UD PO PRN (18:51)
[2018-05-28] MEDS ORDERED: ACETAMINOPHEN 325 MG TABLET (FP) PO PRN ×2 (18:51)
[2018-05-28] MEDS ORDERED: guaiFENesin 200 MG/10 ML 10 ML UNIT-DOSE CUPS PO PRN (18:51)
[2018-05-28] MEDS ORDERED: MAG HYDROX/AL HYDROX/SIMETH 30 ML UNIT-DOSE CUP PO PRN (18:51)
[2018-05-28] MEDS ORDERED: MAGNESIUM CITRATE 300 ML BOTTLE PO PRN (18:51)
[2018-05-28] MEDS: THIAMINE HCL 100 MG TABLET (FP) PO SCH (22:06)
[2018-05-28] MEDS: chlordiazePOXIDE HCL 25 MG CAPSULE PO SCH (22:06)
[2018-05-28] MEDS ORDERED: METHADONE HCL 10 MG TABLET (FOR DETOX USE ONLY) PO ONE (23:00)
[2018-05-28] MEDS ORDERED: ALBUTEROL SO4 0.083% IH SOL 2.5 MG/3 ML VIAL.NEB. NEB PRN (23:28)
[2018-05-29] MEDS: chlordiazePOXIDE HCL 25 MG CAPSULE PO SCH ×2 (05:52→12:52)
[2018-05-29] MEDS: ALBUTEROL SO4 8 GM HFA INHALER IH PRN (05:53)
[2018-05-29] MEDS: chlordiazePOXIDE HCL 10 MG CAPSULE PO PRN ×2 (08:45→16:32)
[2018-05-29] MEDS ORDERED: METHADONE HCL 5 MG TABLET (FOR DETOX USE ONLY) PO ONE (10:00)
[2018-05-29] MEDS: PRENATAL VITAMINS W/ FOLIC ACID TABLET (FP) PO SCH (10:03)
[2018-05-29] MEDS: amLODIPine BESYLATE 10 MG TABLET (FP) PO SCH (10:03)
[2018-05-29] MEDS: HYDROCHLOROTHIAZIDE 25 MG TABLET (FP) PO SCH (10:03)
[2018-05-29] MEDS: LISINOPRIL 10 MG TABLET (FP) PO SCH (10:03)
[2018-05-29 10:26] LABS: ALBUMIN 3.5 g/dl (3.4-5.0); ALK PHOS 74 U/L (45-117); ANION GAP 7 MMOL/L (8-16); BILIRUBIN,TOTAL 1.8 mg/dL (0.2-1); BLOOD UREA NITROGEN 19 mg/dL (7-18); CHLORIDE 97 mmol/L (98-107); CO2 33 mmol/L (21-32); CREATININE 0.8 mg/dL (0.55-1.3); GLUCOSE,RANDOM 93 mg/dL (74-106); POTASSIUM 3.2 mmol/L (3.5-5.1); SGOT/AST 121 U/L (15-37); SGPT/ALT 38 U/L (13-61); SODIUM 137 mmol/L (136-145)
[2018-05-29 10:36] LABS: HEMATOCRIT 34.1 % (32.4-45.2); MCH 24.4 pg (25.7-33.7); MCHC 32.2 g/dl (32.0-36.0); MEAN CELL VOLUME 75.8 fl (80-96); MEAN PLT VOLUME 9.5 fl (7.5-11.1); PLATELET COUNT 92 K/MM3 (134-434); RDW 16.2 % (11.6-15.6); WHITE BLOOD COUNT 5.6 K/mm3 (4.0-10.0)
[2018-05-29] MEDS: NICOTINE 21 MG/24 HOURS TOPICAL PATCH TD SCH (11:30)
--- NOTE | 2018-05-29 16:40 | PN ---
S CIWA - CIWA Score Nausea/Vomitin Muscle Tremors: 3 Anxiety: 2 Agitation: 0-Normal Activity Paroxysmal Sweats: 3 Orientation: 0-Oriented Tacttile Disturbances: 2-Mild Itch/Numbness/Burn Auditory Disturbances: 0-None Visual Disturbances: 0-None Headache: 0-None Present CIWA-Ar Total Score: 13 [facility] COWS - Scale Resting Pulse: 2= [place] 101-120 Sweatin= Chills/Flushing Restless Observation: 0= Sits Still Pupil Size: 0= Normal to Room Light Bone or Joint Aches: 0= None Runny Nose/ Eye Tearin= None GI Upset > 30mins: 0= None Tremor Observation of Outstretched Hands: 2= Slight Tremor Visible Yawning Observation: 1= 1-2x During Session Anxiety or Irritability: 2=Irritable/Anxious Goose Flesh Skin: 3=Piloerection COWS Score: 11 S Progress Note (SOAP) Subjective: Tremors, Sweating, Nausea, Anxious. Objective: PATIENT A & O X 3, OBSERVED AMBULATING ON UNIT. IN NO ACUTE DISTRESS. 05/29/18 16:53 Vital Signs Temperature 98.2 F 05/29/18 13:00 Pulse Rate 84 05/29/18 13:00 Respiratory Rate 18 05/29/18 13:00 Blood Pressure 93/57 L 05/29/18 13:00 O2 Sat by Pulse Oximetry (%) Laboratory Tests 05/29/18 05/29/18 07:00 07:00 WBC 5.6 RBC 4.50 Hgb 11.0 Hct 34.1 MCV 75.8 L MCH 24.4 L MCHC 32.2 RDW 16.2 H Plt Count 92 L D MPV 9.5 Manual Slide Review Platelet Comment Platelet decreased Sodium 137 Potassium 3.2 L Chloride 97 L Carbon Dioxide 33 H Anion Gap 7 L BUN 19 H Creatinine 0.8 Creat Clearance w eGFR 72.68 Random Glucose 93 Calcium 9.0 Total Bilirubin 1.8 H AST 121 H ALT 38 Alkaline Phosphatase 74 Total Protein 8.0 Albumin 3.5 LABS NOTED. Assessment: 05/29/18 16:55 WITHDRAWAL SYMPTOMS. HYPOKALEMIA. THROMBOCYTOPENIA. ELEVATED LIVER ENZYMES. Plan: CONTINUE DETOX. K-DUR, 20 MEQ PO BID FOR HYPOKALEMIA. HFP TOMORROW AM FOR ELEVATED ADMISSION TOTAL BILIRUBIN AND AST LEVELS.
[2018-05-29] MEDS: POTASSIUM CHLORIDE TABS 20 MEQ TABLET.ER (FP) PO SCH (17:56)
[2018-05-29] MEDS: METHOCARBAMOL 500 MG TABLET PO PRN (17:56)
[2018-05-29] MEDS: MELATONIN 5 MG TABLETS PO PRN (21:54)
[2018-05-29] MEDS: THIAMINE HCL 100 MG TABLET (FP) PO SCH (21:54)
[2018-05-29] MEDS: chlordiazePOXIDE 5 MG CAPSULE PO SCH (21:54)
[2018-05-30] MEDS: chlordiazePOXIDE 5 MG CAPSULE PO SCH ×2 (05:19→14:26)
[2018-05-30] MEDS ORDERED: METHADONE HCL 5 MG TABLET PO ONE (10:00)
[2018-05-30] MEDS ORDERED: METHADONE HCL 10 MG TABLET (FOR DETOX USE ONLY) PO ONE ×2 (10:00)
[2018-05-30] MEDS: PRENATAL VITAMINS W/ FOLIC ACID TABLET (FP) PO SCH (10:13)
[2018-05-30] MEDS: amLODIPine BESYLATE 10 MG TABLET (FP) PO SCH (10:13)
[2018-05-30] MEDS: LISINOPRIL 10 MG TABLET (FP) PO SCH (10:13)
[2018-05-30] MEDS: POTASSIUM CHLORIDE TABS 20 MEQ TABLET.ER (FP) PO SCH ×2 (10:13→19:00)
[2018-05-30] MEDS: HYDROCHLOROTHIAZIDE 25 MG TABLET (FP) PO SCH (10:13)
[2018-05-30] MEDS: NICOTINE 21 MG/24 HOURS TOPICAL PATCH TD SCH (10:14)
[2018-05-30] MEDS: METHOCARBAMOL 500 MG TABLET PO PRN (10:17)
[2018-05-30 10:56] LABS: ALBUMIN 3.2 g/dl (3.4-5.0); BILIRUBIN,DIRECT 0.6 mg/dL (0.0-0.2); BILIRUBIN,TOTAL 1.8 mg/dL (0.2-1); TOT PROT 7.2 g/dl (6.4-8.2)
--- NOTE | 2018-05-30 16:29 | PN ---
[facility] CIWA - CIWA Score Nausea/Vomitin-No Nausea/No Vomiting Muscle Tremors: 3 Anxiety: 1-Mildly Anxious Agitation: 3 Paroxysmal Sweats: 3 Orientation: 1-Uncertain about Date Tacttile Disturbances: 0-None Auditory Disturbances: 0-None Visual Disturbances: 0-None Headache: 0-None Present CIWA-Ar Total Score: 11 S COWS - Scale Resting Pulse: 0= [place] 80 or Below Sweatin=Flushed/Facial Moisture Restless Observation: 0= Sits Still Pupil Size: 0= Normal to Room Light Bone or Joint Aches: 0= None Runny Nose/ Eye Tearin= Nasal Congestion GI Upset > 30mins: 0= None Tremor Observation of Outstretched Hands: 2= Slight Tremor Visible Yawning Observation: 1= 1-2x During Session Anxiety or Irritability: 1=Feels Anxious/Irritable Goose Flesh Skin: 0=Smooth Skin COWS Score: 7 [facility] Progress Note (SOAP) Subjective: cold/shills Objective: 05/30/18 16:28 in bed, irritable breathing even, unlabored Vital Signs Temperature 98.6 F 05/30/18 13:53 Pulse Rate 121 H 05/30/18 13:53 Respiratory Rate 18 05/30/18 13:53 Blood Pressure 97/73 05/30/18 13:53 O2 Sat by Pulse Oximetry (%) tachycardiac at this time, no complaints offered Assessment: 05/30/18 16:29 withdrawal sx Plan: continue detox
[2018-05-30] MEDS: ALBUTEROL SO4 8 GM HFA INHALER IH PRN (16:51)
[2018-05-30] MEDS: chlordiazePOXIDE HCL 10 MG CAPSULE PO SCH (20:39)
[2018-05-30] MEDS: MELATONIN 5 MG TABLETS PO PRN (20:39)
[2018-05-30] MEDS ORDERED: chlordiazePOXIDE HCL 10 MG CAPSULE PO PRN (21:00)
[2018-05-30] MEDS: THIAMINE HCL 100 MG TABLET (FP) PO SCH (22:24)
[2018-05-31] MEDS: chlordiazePOXIDE HCL 10 MG CAPSULE PO SCH (05:28)
[2018-05-31] MEDS ORDERED: METHADONE HCL 5 MG TABLET (FOR DETOX USE ONLY) PO ONE (06:00)
--- NOTE | 2018-05-31 08:59 | DS ---
[facility] Detox Discharge Summary Admission Date: 05/28/18 Discharge Date: 05/31/18 - History Present History: Alcohol Dependence, Opioid Dependence Additional Comments: 63 years old female admitted on 05/28/18 for alcohol withdrawal stabilization [facility] Pert[facility] Past History: bring in medication list and lab report to aftercare appointment medication adherence - Physical Exam Results Vital Signs: Vital Signs Temperature 97.8 F 05/31/18 06:23 Pulse Rate 70 05/31/18 06:23 Respiratory Rate 16 05/31/18 06:23 Blood Pressure 86/60 L 05/31/18 06:23 O2 Sat by Pulse Oximetry (%) Pertinent Admission Physical Exam Findings: alcohol and opiate withdrawal sx Vital Signs Temperature 98.7 F 05/31/18 09:52 Pulse Rate 79 05/31/18 09:52 Respiratory Rate 18 05/31/18 09:52 Blood Pressure 108/77 05/31/18 09:52 O2 Sat by Pulse Oximetry (%) Laboratory Last Values WBC 5.6 K/mm3 (4.0-10.0) 05/29/18 07:00 RBC 4.50 M/mm3 (3.60-5.2) 05/29/18 07:00 Hgb 11.0 GM/dL (10.7-15.3) 05/29/18 07:00 Hct 34.1 % (32.4-45.2) 05/29/18 07:00 MCV 75.8 fl (80-96) L 05/29/18 07:00 MCH 24.4 pg (25.7-33.7) L 05/29/18 07:00 MCHC 32.2 g/dl (32.0-36.0) 05/29/18 07:00 RDW 16.2 % (11.6-15.6) H 05/29/18 07:00 Plt Count 92 K/MM3 (134-434) L D 05/29/18 07:00 MPV 9.5 fl (7.5-11.1) 05/29/18 07:00 Manual Slide Review 05/29/18 07:00 Platelet Comment Platelet decreased 05/29/18 07:00 Sodium 137 mmol/L (136-145) 05/29/18 07:00 Potassium 3.2 mmol/L (3.5-5.1) L 05/29/18 07:00 Chloride 97 mmol/L (98-107) L 05/29/18 07:00 Carbon Dioxide 33 mmol/L (21-32) H 05/29/18 07:00 Anion Gap 7 MMOL/L (8-16) L 05/29/18 07:00 BUN 19 mg/dL (7-18) H 05/29/18 07:00 Creatinine 0.8 mg/dL (0.55-1.3) 05/29/18 07:00 Creat Clearance w eGFR 72.68 (>60) 05/29/18 07:00 Random Glucose 93 mg/dL (74-106) 05/29/18 07:00 Calcium 9.0 mg/dL (8.5-10.1) 05/29/18 07:00 Total Bilirubin 1.8 mg/dL (0.2-1) H 05/30/18 07:45 Direct Bilirubin 0.6 mg/dL (0.0-0.2) H 05/30/18 07:45 AST 116 U/L (15-37) H 05/30/18 07:45 ALT 36 U/L (13-61) 05/30/18 07:45 Alkaline Phosphatase 74 U/L (45-117) 05/30/18 07:45 Total Protein 7.2 g/dl (6.4-8.2) 05/30/18 07:45 Albumin 3.2 g/dl (3.4-5.0) L 05/30/18 07:45 lab noted K+ supplement - Treatment Hospital Course: Detox Protocol Followed, Detoxed Safely, Responded well, Discharged Condition Good, Rehab Referral Accepted Patient has Accepted a Rehab Referral to: [facility] - Medication Discharge Medications: Ambulatory Orders Hydralazine HCl 25 mg PO DAILY 04/17/18 Albuterol Sulfate Inhaler - [Ventolin HFA Inhaler -] 2 puff IH Q4H PRN #1 inhaler 05/31/18 Amlodipine Besylate 10 mg PO DAILY #14 tablet 05/31/18 Amoxicillin/Potassium Clav [Augmentin 875-125 Tablet] 1 each PO BID 7 Days #14 tablet 05/31/18 Lisinopril 10 mg PO DAILY #14 tablet 05/31/18 - Diagnosis (1) Alcohol dependence with uncomplicated withdrawal Current Visit: Yes Status: Acute (2) Hypokalemia Current Visit: Yes Status: Chronic (3) Opioid dependence with withdrawal Current Visit: Yes Status: Acute (4) Hepatitis C Current Visit: Yes Status: Chronic Qualifiers: Viral hepatitis chronicity: carrier Qualified Code(s): B18.2 - Chronic viral hepatitis C - AMA Did Patient Leave Against Medical Advice: No
[2018-05-31 09:52] VITALS: BP 108/77; PULSE 79; TEMP 98.7
[2018-05-31] MEDS: POTASSIUM CHLORIDE TABS 20 MEQ TABLET.ER (FP) PO SCH (10:28)
[2018-05-31] MEDS: LISINOPRIL 10 MG TABLET (FP) PO SCH (10:28)
[2018-05-31] MEDS: HYDROCHLOROTHIAZIDE 25 MG TABLET (FP) PO SCH (10:28)
[2018-05-31] MEDS: amLODIPine BESYLATE 10 MG TABLET (FP) PO SCH (10:28)
[2018-05-31] MEDS: PRENATAL VITAMINS W/ FOLIC ACID TABLET (FP) PO SCH (10:28)
[2018-05-31] MEDS: NICOTINE 21 MG/24 HOURS TOPICAL PATCH TD SCH (12:15)
== END 2018-05-31 11:30 | disposition home or self-care (01) | DRG 773 ==
LOC: YASAS 13:06 → Y3N 21:13
PROVIDERS: ADMIT Surgery; ATTEND Surgery
PROC: HZ2ZZZZ Detoxification Services for Substance Abuse Treatment (ICD-10-PCS; principal; 2018-05-28)
DX: F10.230 Alcohol dependence with withdrawal, uncomplicated (principal); F11.23 Opioid dependence with withdrawal; F17.210 Nicotine dependence, cigarettes, uncomplicated; E87.6 Hypokalemia; D69.6 Thrombocytopenia, unspecified; B18.2 Chronic viral hepatitis C; R94.5 Abnormal results of liver function studies; I10 Essential (primary) hypertension; J44.9 Chronic obstructive pulmonary disease, unspecified; Z86.2 Personal history of diseases of the blood and blood-forming organs and certain disorders involving the immune mechanism
CPT/HCPCS: 36415; 80053; 80076; 85027; J0735